=== PATIENT | female | born 2000 | race African-American/Black ===

== ENCOUNTER 2020-02-17 01:38 | Inpatient (IN) | payer MEDICAID ==
[2020-02-17] MEDS ORDERED: Lidocaine 1% 50 ML MDV INJECT ONE (02:27)
[2020-02-17] MEDS ORDERED: Acetaminophen 325 MG Tab PO PRN (02:27)
[2020-02-17] MEDS ORDERED: Sodium Chloride 0.9% 10 ML Syringe FLUSH PRN (02:27)
[2020-02-17] MEDS ORDERED: Ampicillin 2 GM in Sodium Chloride 0.9% 100 ML IV ONE (02:27)
[2020-02-17] MEDS ORDERED: Ondansetron 4 MG/2 ML SDV IVPUSH PRN (02:27)
[2020-02-17] MEDS ORDERED: Calcium Carbonate 500 MG Tab.Chew PO PRN (02:27)
[2020-02-17] MEDS ORDERED: Oxytocin/Lactated Ringers 10 UNIT/1,000 ML BAG IV SCH ×2 (02:30)
[2020-02-17] MEDS: Lactated Ringers 1,000 ML IV SCH ×3 (03:05→23:56)
[2020-02-17] MEDS: Ampicillin 1 GM in Sodium Chloride 0.9% 100 ML IV SCH ×5 (06:55→22:44)
--- NOTE | 2020-02-17 08:50 | PCM.LDHP ---
<Katharina Jenkins - Last Filed: 02/17/20 08:45> L&D History of Present Illness - General Date of Service: 02/17/20 Admit Problem/Dx: Patient Status Order with Admit Dx/Problem 02/17/20 01:48 Patient Status [ADT] Routine 02/17/20 02:28 Patient Status [ADT] Routine Admission Diagnosis/Problem Admission Diagnosis/Problem Active labor Source of Information: Patient History Limitations: Reports: No Limitations - History of Present Illness Introduction:: Keerthi Argueta is a that presented 02/17/2020 in active labor. She states her water broke around 12:30 AM and came in for admission. She is experiencing intermittent pelvic pressure that does not radiate into her vagina. She admits to mild anxiety involving delivery but not other problems. She is overall healthy with no concerns. Timing/Duration: Reports: intermittent Location, : Reports: Pelvic Quality: Reports: Pressure Severity: Mild - Related Data Allergies/Adverse Reactions: Allergies Allergy/AdvReac Type Severity Reaction Status Date / Time No Known Allergies Allergy Verified 02/17/20 01:49 Home Medications: Home Meds No122/Iron/Folic Acid [ Multi Tablet] 1 each PO DAILY 02/17/20 [History] Past Medical History HEENT History: Denies: Allergic Rhinitis, Epistaxis, Hard of Hearing, Impaired Vision, Sinusitis Cardiovascular History: Denies: Heart Murmur Respiratory History: Denies: Asthma Gastrointestinal History: Denies: Jaundice Genitourinary History: Denies: UTI, Recurrent DIRECTOR PEDIATRIC History: Reports: : 1 Para: 0 Psychiatric History: Reports: Addiction, Anxiety, Depression, Suicidal Ideation Other Psychiatric History: Pt reports suicidal thoughts about 1 year ago, denies plan or attempts. Denies suicidal thoughts currently. - Past Surgical History HEENT Surgical History: Reports: Oral Surgery Musculoskeletal Surgical History: Reports: Other (See Below) Other Musculoskeletal Surgeries/Procedures:: left knee surgery Social & Family History - Family History Family Medical History: Noncontributory - Tobacco Use Smoking Status *Q: Former Smoker Used Tobacco, but Quit: Yes Month/Year Tobacco Last Used: 04/2019 - Recreational Drug Use Recreational Drug Use: No H&P Review of Systems - Review of Systems: Review Of Systems: See Below General: Denies: Fever, Chills, Weakness, Night Sweats, Weight Loss HEENT: Denies: Headaches, Hearing Changes, Rhinitis, Sinus Congestion, Sore Throat, Visual Changes Pulmonary: Denies: Shortness of Breath, Cough, Hemoptysis Cardiovascular: Denies: Chest Pain, Palpitations, Lightheadedness Gastrointestinal: Denies: Abdominal Pain, Constipation, Diarrhea, Difficulty Swallowing, Nausea, Vomiting Genitourinary: Denies: Dysuria, Burning, Pain Skin: Reports: Pruritis (abdominal pruritis where US gel was applied.) Psychiatric: Reports: Anxiety Neurological: Denies: Dizziness, Headache, Numbness, Paresthesia, Tingling, Chau mors Hematologic/Lymphatic: Denies: Anemia, Easy Bruising Immunologic: Reports: No Symptoms L&D Exam - Exam Exam: See Below - Vital Signs Vital Signs: Last Vital Signs Temp 98.6 F 02/17/20 01:48 Pulse 113 H 02/17/20 01:48 Resp 16 02/17/20 01:48 BP 134/88 02/17/20 01:48 Pulse Ox 98 02/17/20 01:48 Weight: 70.488 kg - Exam General: Alert, Oriented, Cooperative HEENT: Conjunctiva Clear, Hearing Intact Neck: Supple, Trachea Midline Lungs: Clear to Auscultation, Normal Respiratory Effort Cardiovascular: Regular Rate, Regular Rhythm, Normal S1, Normal S2 GI/Abdominal Exam: Non-Tender, No Organomegaly, No Distention Rectal Exam: Decreased Rectal Tone Extremities: Normal Inspection, Normal Range of Motion Skin: Warm, Dry, Intact Psychiatric: Alert, Normal Affect, Normal Mood - Patient Data Lab Results Last 24 hrs: Laboratory Results - last 24 hr 02/17/20 02/17/20 02/17/20 Range/Units 02:00 02:40 02:40 WBC 9.62 (3.98-10.04) K/mm3 RBC 4.65 (3.98-5.22) M/mm3 Hgb 12.9 (11.2-15.7) gm/dl Hct 39.3 (34.1-44.9) % MCV 84.5 (79.4-94.8) fl MCH 27.7 (25.6-32.2) pg MCHC 32.8 (32.2-35.5) g/dl RDW Std Deviation 41.0 (36.4-46.3) fL Plt Count 255 (182-369) K/mm3 MPV 10.7 (9.4-12.3) fl Neut % (Auto) 70.9 (34.0-71.1) % Lymph % (Auto) 20.4 (19.3-51.7) % [place] % (Auto) 8.0 (4.7-12.5) % Eos % (Auto) 0.3 L (0.7-5.8) Baso % (Auto) 0.2 (0.1-1.2) % Neut # (Auto) 6.82 H (1.56-6.13) K/mm3 Lymph # (Auto) 1.96 (1.18-3.74) K/mm3 [place] # (Auto) 0.77 H (0.24-0.36) K/mm3 Eos # (Auto) 0.03 L (0.04-0.36) K/mm3 Baso # (Auto) 0.02 (0.01-0.08) K/mm3 Membrane Rupture Positive H COVID-19 (ULISES) (NEGATIVE) Blood Type O POSITIVE Gel Antibody Screen Negative 02/17/20 Range/Units 02:52 WBC (3.98-10.04) K/mm3 RBC (3.98-5.22) M/mm3 Hgb (11.2-15.7) gm/dl Hct (34.1-44.9) % MCV (79.4-94.8) fl MCH (25.6-32.2) pg MCHC (32.2-35.5) g/dl RDW Std Deviation (36.4-46.3) fL Plt Count (182-369) K/mm3 MPV (9.4-12.3) fl Neut % (Auto) (34.0-71.1) % Lymph % (Auto) (19.3-51.7) % [place] % (Auto) (4.7-12.5) % Eos % (Auto) (0.7-5.8) Baso % (Auto) (0.1-1.2) % Neut # (Auto) (1.56-6.13) K/mm3 Lymph # (Auto) (1.18-3.74) K/mm3 [place] # (Auto) (0.24-0.36) K/mm3 Eos # (Auto) (0.04-0.36) K/mm3 Baso # (Auto) (0.01-0.08) K/mm3 Membrane Rupture COVID-19 (ULISES) Negative (NEGATIVE) Blood Type Gel Antibody Screen Result Diagrams: 02/17/20 02:40 - Problem List (1) Active labor at term SNOMED Code(s): 08381087 ICD Code: [id number] - Status: Acute Current Visit: Yes Problem List Initiated/Reviewed/Updated: Yes Orders Last 24hrs: Active Orders 24 hr Category Date Time Status Patient Status [ADT] Routine ADT 02/17/20 02:28 Active Activity as Tolerated [RC] PFP Care 02/17/20 02:27 Active Communication Order [RC] ASDIRECTED Care 02/17/20 02:27 Active Notify Provider [RC] PFP Care 02/17/20 02:27 Active Notify Provider [RC] PRN Care 02/17/20 02:27 Active Peripheral IV Care [RC] PRN Care 02/17/20 02:28 Active Pump Management, Intrathecal [RC] ASDIRECTED Care 02/17/20 02:28 Active Urinary Catheter Assessment [RC] ASDIRECTED Care 02/17/20 02:27 Active Consult to Case Management/Director Of Placement [CONS] Cons 02/17/20 07:15 Active Routine Regular Diet [DIET] Diet 02/17/20 Breakfast Active RAPID PLASMA REAGIN,RPR [CHEM] Stat Lab 02/17/20 02:40 Received Acetaminophen [TylenoL] Med 02/17/20 02:27 Active 650 mg PO Q4H PRN Ampicillin 1 gm Med 02/17/20 06:30 Active Sodium Chloride 0.9% [Normal Saline] 100 ml IV Q4H Calcium Carbonate [Tums] Med 02/17/20 02:27 Active 1,000 mg PO Q2H PRN Lactated Ringers [Ringers, Lactated] 1,000 ml Med 02/17/20 02:30 Active IV ASDIRECTED Nalbuphine [Nubain] Med 02/17/20 02:27 Active 10 mg IVPUSH Q2H PRN Ondansetron [Zofran] Med 02/17/20 02:27 Active 4 mg IVPUSH Q4H PRN Oxytocin/Lactated Ringers [Pitocin in LR 10 Units/1,000 Med 02/17/20 02:30 Active ML] 10 unit in 1,000 ml IV .CONTINUOUS Oxytocin/Lactated Ringers [Pitocin in LR 10 Units/1,000 Med 02/17/20 02:30 Active ML] 10 unit in 1,000 ml IV TITRATE Sodium Chloride 0.9% [Saline Flush] Med 02/17/20 02:27 Active 10 ml FLUSH ASDIRECTED PRN Electronic Heart Tones Ext w TOCO [WOMSER] Ot 02/17/20 02:27 Ordered Routine Electronic Heart Tones Internal [WOMSER] Per Unit Ot 02/17/20 02:27 Ordered Routine Peripheral IV Insertion Adult [OM.PC] Routine Ot 02/17/20 02:27 Ordered Resuscitation Status Routine Resus Stat 02/17/20 01:47 Ordered Medication Orders Acetaminophen (Tylenol) 650 mg PO Q4H PRN PRN Reason: Pain (Mild 1-3) and fever Calcium Carbonate/Glycine (Tums) 1,000 mg PO Q2H PRN PRN Reason: Indigestion Lactated Ringer's (Ringers, Lactated) 1,000 mls @ 100 mls/hr IV ASDIRECTED [facility] Last Admin: 02/17/20 03:05 Dose: 40 mls/hr Documented by: KELLY Ampicillin Sodium 1 gm/ Sodium (Chloride) 100 mls @ 200 mls/hr IV Q4H [facility] Last Admin: 02/17/20 06:55 Dose: 200 mls/hr Documented by: OLIVERECHE Oxytocin/Lactated Ringer's (Pitocin In Lr 10 Units/1,000 Ml) 10 unit in 1,000 mls @ 12 mls/hr IV TITRATE AMADEO; Protocol Oxytocin/Lactated Ringer's (Pitocin In Lr 10 Units/1,000 Ml) 10 unit in 1,000 mls @ 500 mls/hr IV .CONTINUOUS AM[facility]O Nalbuphine HCl (Nubain) 10 mg IVPUSH Q2H PRN PRN Reason: Pain Ondansetron HCl (Zofran) 4 mg IVPUSH Q4H PRN PRN Reason: Nausea/Vomiting Sodium Chloride (Saline Flush) 10 ml FLUSH ASDIRECTED PRN PRN Reason: Keep Vein Open <Madhu Tam - Last Filed: 08/22/20 10:04> L&D History of Present Illness - General Admit Problem/Dx: Patient Status Order with Admit Dx/Problem 02/17/20 01:48 Patient Status [ADT] Routine 02/17/20 02:28 Patient Status [ADT] Routine Admission Diagnosis/Problem Admission Diagnosis/Problem Active labor - History of Present Illness Present Illness Comments:: Keerthi Argueta is a 19-year-old at 3 8 weeks 2 days (UMANG 02/29/2020) by an early ultrasound who presents in active labor with spontaneous rupture membranes at home earlier this evening. She had routine care throughout her . She was initially seen by a provider in [place] and transferred care to Dr. Nino at 31 weeks 6 days after she had moved here to [place]. Her was overall uncomplicated and she did not have any significant issues. She received Tdap on 01/24/2020. Her is complicated by: * GBS positive on swab and plan for treatment with antibiotics in labor * History of chlamydia with negative test of cure during this with positive on 09/19/2019 and treated and then negative on 11/02/2019. Repeat positive chlamydia test on 01/03/2020 and negative test of cure on 02/05/2020. * Former smokeless tobacco use but none during the . * Teen and moved to [place] to have additional help with caring for the after delivery * Elevated 1 hour glucose tolerance test of 150 and no 3-hour glucose test performed * ancestry without evaluation for hemoglobinopathies DIRECTOR PEDIATRIC history: G1: Current labs Blood type: O+ Antibody screen: Negative First trimester hematocrit/hemoglobin: 38.0%/12.9 on 11/02/2019 Platelets: 253 on 11/02/2019 Urine culture: Consistent with skin tate contamination Rubella status: Immune Hepatitis B surface antigen: Negative RPR: Negative HIV: Negative Gonorrhea: Negative Chlamydia: Positive on 09/19/2019, negative on 11/02/2019. Repeat positive on 01/03/2020 with negative test of cure on 02/05/2020. Anatomy ultrasound: Normal anatomy, anterior placenta, three-vessel cord, 68th percentile One hour glucose tolerance test: 150 Second trimester hemoglobin: 11.3 on 12/12/2019 GBS status: Positive Past Medical History - Past Surgical History HEENT Surgical History: Reports: Oral Surgery ([place] tooth extraction) Social & Family History - Tobacco Core Measures Tobacco Use/Smoking Within Last 30 Days: No Smokeless Tobacco Use in Last 30 Days: No - Alcohol Use Alcohol Use History: No - Recreational Drug Use Recreational Drug Use: No Drug Use in Last 12 Months: No L&D Exam - Vital Signs Vital Signs: Last Vital Signs Temp 37.0 C 02/17/20 01:48 Pulse 113 H 02/17/20 01:48 Resp 16 02/17/20 01:48 BP 134/88 02/17/20 01:48 Pulse Ox 98 02/17/20 01:48 - OB Specific Presentation: Vertex Estimated Weight: 7-7.5 lbs by leopolds - Sheriff Score Sheriff Score Cervix Position: Posterior Sheriff Score Consistency: Medium Sheriff Score Effacement: >80% (80%) Sheriff Score Dilation: 3-4 cm (3 cm) Sheriff Score Infant's Station: -3 (-4) Sheriff Score Total: 6 - Exam GI/Abdominal Exam: Other (Gravid). No: No Organomegaly (Not checked for organomegaly), Guarding, Rigid, Rebound Rectal Exam: No: Decreased Rectal Tone (Rectal tone not checked on exam.) Genitourinary: Normal external exam, Other (Fore bag noted on cervical exam and artificial rupture membranes performed with [place] with return of moderate amount of clear fluid. Mother and tolerated without difficulty.) - Patient Data Lab Results Last 24 hrs: Laboratory Results - last 24 hr 02/17/20 02/17/20 02/17/20 Range/Units 02:00 02:40 02:40 WBC 9.62 (3.98-10.04) K/mm3 RBC 4.65 (3.98-5.22) M/mm3 Hgb 12.9 (11.2-15.7) gm/dl Hct 39.3 (34.1-44.9) % MCV 84.5 (79.4-94.8) fl MCH 27.7 (25.6-32.2) pg MCHC 32.8 (32.2-35.5) g/dl RDW Std Deviation 41.0 (36.4-46.3) fL Plt Count 255 (182-369) K/mm3 MPV 10.7 (9.4-12.3) fl Neut % (Auto) 70.9 (34.0-71.1) % Lymph % (Auto) 20.4 (19.3-51.7) % [place] % (Auto) 8.0 (4.7-12.5) % Eos % (Auto) 0.3 L (0.7-5.8) Baso % (Auto) 0.2 (0.1-1.2) % Neut # (Auto) 6.82 H (1.56-6.13) K/mm3 Lymph # (Auto) 1.96 (1.18-3.74) K/mm3 [place] # (Auto) 0.77 H (0.24-0.36) K/mm3 Eos # (Auto) 0.03 L (0.04-0.36) K/mm3 Baso # (Auto) 0.02 (0.01-0.08) K/mm3 Membrane Rupture Positive H COVID-19 (ULISES) (NEGATIVE) Blood Type O POSITIVE Gel Antibody Screen Negative 02/17/20 Range/Units 02:52 WBC (3.98-10.04) K/mm3 RBC (3.98-5.22) M/mm3 Hgb (11.2-15.7) gm/dl Hct (34.1-44.9) % MCV (79.4-94.8) fl MCH (25.6-32.2) pg MCHC (32.2-35.5) g/dl RDW Std Deviation (36.4-46.3) fL Plt Count (182-369) K/mm3 MPV (9.4-12.3) fl Neut % (Auto) (34.0-71.1) % Lymph % (Auto) (19.3-51.7) % [place] % (Auto) (4.7-12.5) % Eos % (Auto) (0.7-5.8) Baso % (Auto) (0.1-1.2) % Neut # (Auto) (1.56-6.13) K/mm3 Lymph # (Auto) (1.18-3.74) K/mm3 [place] # (Auto) (0.24-0.36) K/mm3 Eos # (Auto) (0.04-0.36) K/mm3 Baso # (Auto) (0.01-0.08) K/mm3 Membrane Rupture COVID-19 (ULISES) Negative (NEGATIVE) Blood Type Gel Antibody Screen Result Diagrams: 02/17/20 02:40 - Problem List (1) 38 weeks gestation of SNOMED Code(s): 68601307 ICD Code: Z3A.38 - 38 WEEKS GESTATION OF Status: Acute Current Visit: Yes (2) GBS (group B Streptococcus carrier), +RV culture, currently SNOMED Code(s): 8627026127534, 424836073, 1230810507671 ICD Code: O99.820 - STREPTOCOCCUS B CARRIER STATE COMPLICATING Status: Acute Current Visit: Yes (3) Chlamydia infection affecting SNOMED Code(s): 1962099749538 ICD Code: O98.819 - OTH MATERNAL INFEC/PARASTC DISEASES COMP PREG, UNSP TRI; A74.9 - CHLAMYDIAL INFECTION, UNSPECIFIED Status: Acute Current Visit: Yes (4) ancestry requiring population-specific genetic screening SNOMED Code(s): 31364048, 620148151, 343005623 ICD Code: Z13.79 - ENCNTR FOR OTH SCREENING FOR GENETIC AND CHROMSOML ANOMALIES Status: Acute Current Visit: Yes (5) Elevated glucose tolerance test Status: Acute Current Visit: Yes Problem List Initiated/Reviewed/Updated: Yes Orders Last 24hrs: Active Orders 24 hr Category Date Time Status Patient Status [ADT] Routine ADT 02/17/20 02:28 Active Activity as Tolerated [RC] PFP Care 02/17/20 02:27 Active Communication Order [RC] ASDIRECTED Care 02/17/20 02:27 Active Notify Provider [RC] PFP Care 02/17/20 02:27 Active Notify Provider [RC] PRN Care 02/17/20 02:27 Active Peripheral IV Care [RC] PRN Care 02/17/20 02:28 Active Pump Management, Intrathecal [RC] ASDIRECTED Care 02/17/20 02:28 Active Urinary Catheter Assessment [RC] ASDIRECTED Care 02/17/20 02:27 Active Consult to Case Management/Director Of Placement [CONS] Cons 02/17/20 07:15 Active Routine Regular Diet [DIET] Diet 02/17/20 Breakfast Active RAPID PLASMA REAGIN,RPR [CHEM] Stat Lab 02/17/20 02:40 Received Acetaminophen [TylenoL] Med 02/17/20 02:27 Active 650 mg PO Q4H PRN Ampicillin 1 gm Med 02/17/20 06:30 Active Sodium Chloride 0.9% [Normal Saline] 100 ml IV Q4H Calcium Carbonate [Tums] Med 02/17/20 02:27 Active 1,000 mg PO Q2H PRN Lactated Ringers [Ringers, Lactated] 1,000 ml Med 02/17/20 02:30 Active IV ASDIRECTED Nalbuphine [Nubain] Med 02/17/20 02:27 Active 10 mg IVPUSH Q2H PRN Ondansetron [Zofran] Med 02/17/20 02:27 Active 4 mg IVPUSH Q4H PRN Oxytocin/Lactated Ringers [Pitocin in LR 10 Units/1,000 Med 02/17/20 02:30 Active ML] 10 unit in 1,000 ml IV .CONTINUOUS Oxytocin/Lactated Ringers [Pitocin in LR 10 Units/1,000 Med 02/17/20 02:30 Active ML] 10 unit in 1,000 ml IV TITRATE Sodium Chloride 0.9% [Saline Flush] Med 02/17/20 02:27 Active 10 ml FLUSH ASDIRECTED PRN Electronic Heart Tones Ext w TOCO [WOMSER] Oth 02/17/20 02:27 Ordered Routine Electronic Heart Tones Internal [WOMSER] Per Unit Ot 02/17/20 02:27 Ordered Routine Peripheral IV Insertion Adult [OM.PC] Routine Oth 02/17/20 02:27 Ordered Resuscitation Status Routine Resus Stat 02/17/20 01:47 Ordered Medication Orders Acetaminophen (Tylenol) 650 mg PO Q4H PRN PRN Reason: Pain (Mild 1-3) and fever Calcium Carbonate/Glycine (Tums) 1,000 mg PO Q2H PRN PRN Reason: Indigestion Lactated Ringer's (Ringers, Lactated) 1,000 mls @ 100 mls/hr IV ASDIRECTED [facility] Last Admin: 02/17/20 03:05 Dose: 40 mls/hr Documented by: KELLY Ampicillin Sodium 1 gm/ Sodium (Chloride) 100 mls @ 200 mls/hr IV Q4H [facility] Last Admin: 02/17/20 06:55 Dose: 200 mls/hr Documented by: PETECHE Oxytocin/Lactated Ringer's (Pitocin In Lr 10 Units/1,000 Ml) 10 unit in 1,000 m ls @ 12 mls/hr IV TITRATE [facility]; Protocol Oxytocin/Lactated Ringer's (Pitocin In Lr 10 Units/1,000 Ml) 10 unit in 1,000 mls @ 500 mls/hr IV .CONTINUOUS [facility] Nalbuphine HCl (Nubain) 10 mg IVPUSH Q2H PRN PRN Reason: Pain Ondansetron HCl (Zofran) 4 mg IVPUSH Q4H PRN PRN Reason: Nausea/Vomiting Sodium Chloride (Saline Flush) 10 ml FLUSH ASDIRECTED PRN PRN Reason: Keep Vein Open Assessment/Plan Comment:: Keerthi Argueta is a 19-year-old G1, P0 at 38 weeks 2 days (UMAGN 02/29/2020) with spontaneous rupture membranes. She has been given time to contract throughout the night with minimal dilation. Artificial rupture membranes of fore bag performed on labor and delivery with evaluation this morning with minimal change. She was started on Pitocin for augmentation of labor. Refer to observation for spontaneous rupture of membranes Start Pitocin for augmentation of labor with minimal casino change attendant the course of approximately 9 hours with rupture membranes Continuous monitoring Place IV and have Lactated Ringer's at 125 ml/hr May have small amounts of regular diet Activity as tolerated May have epidural as desired Plans to breast-feed after delivery Patient given ampicillin 2 g and continue 1 g every 4 hours after for GBS prophylaxis Anticipate vaginal delivery unless otherwise indicated I have seen and evaluated the patient with the PA student and agree with the note as above with changes noted. Madhu Tam MD 10:04 AM 02/17/2020
[2020-02-17] MEDS: Nalbuphine 10 MG/ML Syringe IVPUSH PRN ×3 (12:52→18:44)
[2020-02-17] MEDS ORDERED: diphenhydrAMINE 50 MG/ML SDV IVPUSH PRN (22:59)
[2020-02-17] MEDS ORDERED: fentaNYL 100 MCG/2 ML SDV EPIDUR PRN (22:59)
[2020-02-17] MEDS ORDERED: ePHEDrine 50 MG/ML SDV IVPUSH PRN (22:59)
[2020-02-17] MEDS ORDERED: Bupivacaine/fentaNYL/NS 100 ML Bag EPIDUR PRN (22:59)
--- NOTE | 2020-02-17 23:57 | PCM.PREANE ---
Preanesthetic Assessment - Procedure Proposed Procedure: Labor Epidural - Anesthesia/Transfusion/Family Hx Anesthesia History: Prior Anesthesia Without Reaction Family History of Anesthesia Reaction: No Transfusion History: No Prior Transfusion(s) - Review of Systems General: No Symptoms Pulmonary: No Symptoms Cardiovascular: No Symptoms Gastrointestinal: No Symptoms Neurological: No Symptoms Other: Reports: Depression, Anxiety - Physical Assessment Vital Signs: Last Vital Signs Temp 37.0 C 02/17/20 01:48 Pulse 113 H 02/17/20 01:48 Resp 16 02/17/20 01:48 BP 134/88 02/17/20 01:48 Pulse Ox 98 02/17/20 01:48 Height: 1.63 m Weight: 70.488 kg ASA Class: 2 Mental Status: Alert & Oriented x3 Airway Class: Mallampati = 2 Dentition: Reports: Normal Dentition Thyro-Mental Finger Breadths: 3 Mouth Opening Finger Breadths: 3 ROM/Head Extension: Full Lungs: Clear to Auscultation, Normal Respiratory Effort Cardiovascular: Regular Rate, Regular Rhythm - Lab Values: Laboratory Last Values WBC 9.62 K/mm3 (3.98-10.04) 02/17/20 02:40 RBC 4.65 M/mm3 (3.98-5.22) 02/17/20 02:40 Hgb 12.9 gm/dl (11.2-15.7) 02/17/20 02:40 Hct 39.3 % (34.1-44.9) 02/17/20 02:40 MCV 84.5 fl (79.4-94.8) 02/17/20 02:40 MCH 27.7 pg (25.6-32.2) 02/17/20 02:40 MCHC 32.8 g/dl (32.2-35.5) 02/17/20 02:40 RDW Std Deviation 41.0 fL (36.4-46.3) 02/17/20 02:40 Plt Count 255 K/mm3 (182-369) 02/17/20 02:40 MPV 10.7 fl (9.4-12.3) 02/17/20 02:40 Neut % (Auto) 70.9 % (34.0-71.1) 02/17/20 02:40 Lymph % (Auto) 20.4 % (19.3-51.7) 02/17/20 02:40 [place] % (Auto) 8.0 % (4.7-12.5) 02/17/20 02:40 Eos % (Auto) 0.3 (0.7-5.8) L 02/17/20 02:40 Baso % (Auto) 0.2 % (0.1-1.2) 02/17/20 02:40 Neut # (Auto) 6.82 K/mm3 (1.56-6.13) H 02/17/20 02:40 Lymph # (Auto) 1.96 K/mm3 (1.18-3.74) 02/17/20 02:40 [place] # (Auto) 0.77 K/mm3 (0.24-0.36) H 02/17/20 02:40 Eos # (Auto) 0.03 K/mm3 (0.04-0.36) L 02/17/20 02:40 Baso # (Auto) 0.02 K/mm3 (0.01-0.08) 02/17/20 02:40 Membrane Rupture Positive H 02/17/20 02:00 COVID-19 (ULISES) Negative (NEGATIVE) 02/17/20 02:52 Blood Type O POSITIVE 02/17/20 02:40 Gel Antibody Screen Negative 02/17/20 02:40 - Allergies Allergies/Adverse Reactions: Allergies Allergy/AdvReac Type Severity Reaction Status Date / Time No Known Allergies Allergy Verified 02/17/20 01:49 - Acknowledgements Anesthesia Type Planned: Epidural Pt an Appropriate Candidate for the Planned Anesthesia: Yes Alternatives and Risks of Anesthesia Discussed w Pt/Guardian: Yes Pt/Guardian Understands and Agrees with Anesthesia Plan: Yes PreAnesthesia Questionnaire HEENT History: Denies: Allergic Rhinitis, Epistaxis, Hard of Hearing, Impaired Vision, Sinusitis Cardiovascular History: Denies: Heart Murmur Respiratory History: Denies: Asthma Gastrointestinal History: Denies: Jaundice Genitourinary History: Denies: UTI, Recurrent BUS INSPECTOR History: Reports: Psychiatric History: Reports: Addiction, Anxiety, Depression, Suicidal Ideation Other Psychiatric History: Pt reports suicidal thoughts about 1 year ago, denies plan or attempts. Denies suicidal thoughts currently. - Past Surgical History HEENT Surgical History: Reports: Oral Surgery ([place] tooth extraction) - SUBSTANCE USE Smoking Status *Q: Former Smoker Tobacco Use Within Last Twelve Months: Vaping Recreational Drug Use History: No - HOME MEDS Home Medications: Home Meds No122/Iron/Folic Acid [ Multi Tablet] 1 each PO DAILY 02/17/20 [History] - CURRENT (IN HOUSE) MEDS Current Meds: Current Medications Acetaminophen (Tylenol) 650 mg PO Q4H PRN PRN Reason: Pain (Mild 1-3) and fever Calcium Carbonate/Glycine (Tums) 1,000 mg PO Q2H PRN PRN Reason: Indigestion Diphenhydramine HCl (Benadryl) 25 mg IVPUSH Q6H PRN PRN Reason: pruritis Ephedrine Sulfate (Ephedrine Sulfate) 5 mg IVPUSH ASDIRECTED PRN PRN Reason: Hypotension Fentanyl (Sublimaze) 100 mcg EPIDUR Q3H PRN PRN Reason: Pain Last Admin: 02/17/20 23:12 Dose: 100 mcg Documented by: Fentanyl/Bupivacaine HCl (Fentanyl/Bupivacaine/Ns 2 Mcg-0.125% 100 Ml) 100 ml EPIDUR ASDIRECTED PRN PRN Reason: Pain Last Admin: 02/17/20 23:12 Dose: 100 ml Documented by: Lactated Ringer's (Ringers, Lactated) 1,000 mls @ 100 mls/hr IV ASDIRECTED [facility] Last Admin: 02/17/20 18:46 Dose: 40 mls/hr Documented by: Ampicillin Sodium 1 gm/ Sodium (Chloride) 100 mls @ 200 mls/hr IV Q4H [facility] Last Admin: 02/17/20 22:44 Dose: 200 mls/hr Documented by: Oxytocin/Lactated Ringer's (Pitocin In Lr 10 Units/1,000 Ml) 10 unit in 1,000 mls @ 12 mls/hr IV TITRATE [facility]; Protocol Last Titration: 02/17/20 23:35 Dose: 12 munits/min, 72 mls/hr Documented by: Oxytocin/Lactated Ringer's (Pitocin In Lr 10 Units/1,000 Ml) 10 unit in 1,000 mls @ 500 mls/hr IV .CONTINUOUS [facility] Nalbuphine HCl (Nubain) 10 mg IVPUSH Q2H PRN PRN Reason: Pain Last Admin: 02/17/20 18:44 Dose: 10 mg Documented by: Ondansetron HCl (Zofran) 4 mg IVPUSH Q4H PRN PRN Reason: Nausea/Vomiting Last Admin: 02/17/20 23:11 Dose: 4 mg Documented by: Sodium Chloride (Saline Flush) 10 ml FLUSH ASDIRECTED PRN PRN Reason: Keep Vein Open Discontinued Medications Ampicillin Sodium 2 gm/ Sodium (Chloride) 100 mls @ 200 mls/hr IV ONETIME ONE Stop: 02/17/20 02:56 Last Admin: 02/17/20 03:05 Dose: 200 mls/hr Documented by: Lidocaine HCl (Xylocaine 1%) 20 ml INJECT ONETIME ONE Stop: 02/17/20 02:28
[2020-02-18] MEDS: Lactated Ringers 1,000 ML IV SCH (01:02)
[2020-02-18] MEDS: Ampicillin 1 GM in Sodium Chloride 0.9% 100 ML IV SCH (02:41)
--- NOTE | 2020-02-18 04:51 | PCM.DEL ---
L & D Note - General Info Date of Service: 02/18/20 Mother's Due Date: 02/29/20 - Delivery Note Labor: Spontaneous, Augmented by Oxytocin Cervical Ripening Method: Oxytocin Delivery Outcome: Livebirth Delivery Method: Spontaneous Vaginal Delivery-Single Presentation: Left Occiput Anterior (MATT) Nuchal Cord: None Prep: Povidone-Iodine (Betadine Anesthesia Type: Epidural Amniotic Fluid Description: Clear Episiotomy Type: None Laceration: 1st Degree (midline perineal and at the posterior hymenal ring) Suture type: Vicryl Suture size: 4-0 Cord: 3 Vessels Estimated Blood Loss: 200 Resuscitation Needed: No : Bulb Syringe, Stimulated, Warmed, Pax Used Provider: Madhu Tam Score 1 min: 9 Score 5 min: 9 Second Stage Interventions: Reports: Pushing, Stirrups/Leg Supports Delivery Comments (Free Text/Narrative):: Stage I: Keerthi Argueta was admitted for spontaneous rupture membranes with clear fluid. On admission her cervix was dilated to 1.5 cm. She was GBS positive and was started on ampicillin for GBS prophylaxis. She received a total of 7 doses prior to delivery. She was making slow progress after initial rupture membranes and was started on Pitocin for augmentation of labor. She was noted to have a fore bag of the amniotic sac and this was artificially ruptured with return of clear fluid. She was continued on Pitocin throughout the day for augmentation of labor. She was given an epidural for anesthesia. She proceeded to complete and pushing. Stage II: On 02/18/2020 she had a normal vaginal delivery of a live male at 04:09. Apgars of 9 & 9. Weight of 3190 g (7 lbs 0.5 oz). Length of 19.0 inches. There was no nuchal cord. was delivered in MATT position. The cord was doubly clamped and cut by patient's sister. Infant was placed on mother's abdomen. Stage III: She had a spontaneous delivery of an intact placenta in Gladys presentation. Three vessel cord. She was given pitocin and fundal massage. She had a first-degree midline perineal laceration and a laceration at the inferior hymenal ring that was bleeding. A [id number] suture with 4-0 Vicryl was placed at the hymenal ring where there was some bleeding and this was made hemostatic. There was also noted to be a small non-enlarging hematoma of the left superior hymenal ring and a small 2 x 2 area of hematoma in the left inferior vaginal wall at approximately the 5 o'clock position. Mom and baby were stable to recovery. EBL of 200 mL. Madhu Tam MD 4:44 AM 02/18/2020 - General Info Date of Service: 02/18/20 - Patient Data Vitals - Most Recent: Last Vital Signs Temp 37.0 C 02/17/20 01:48 Pulse 113 H 02/17/20 01:48 Resp 16 02/17/20 01:48 BP 134/88 02/17/20 01:48 Pulse Ox 98 02/17/20 01:48 Weight - Most Recent: 70.488 kg I&O - Last 24 Hours: Intake & Output 02/17/20 02/17/20 02/18/20 14:59 22:59 06:59 Intake Total 120 1520 2300 Balance 120 1520 2300 Med Orders - Current: Current Medications Acetaminophen (Tylenol) 650 mg PO Q4H PRN PRN Reason: Pain (Mild 1-3) and fever Calcium Carbonate/Glycine (Tums) 1,000 mg PO Q2H PRN PRN Reason: Indigestion Diphenhydramine HCl (Benadryl) 25 mg IVPUSH Q6H PRN PRN Reason: pruritis Ephedrine Sulfate (Ephedrine Sulfate) 5 mg IVPUSH ASDIRECTED PRN PRN Reason: Hypotension Fentanyl (Sublimaze) 100 mcg EPIDUR Q3H PRN PRN Reason: Pain Last Admin: 02/17/20 23:12 Dose: 100 mcg Documented by: Fentanyl/Bupivacaine HCl (Fentanyl/Bupivacaine/Ns 2 Mcg-0.125% 100 Ml) 100 ml EPIDUR ASDIRECTED PRN PRN Reason: Pain Last Admin: 02/17/20 23:12 Dose: 100 ml Documented by: Lactated Ringer's (Ringers, Lactated) 1,000 mls @ 100 mls/hr IV ASDIRECTED AMADEO Last Admin: 02/18/20 01:02 Dose: 40 mls/hr Documented by: Ampicillin Sodium 1 gm/ Sodium (Chloride) 100 mls @ 200 mls/hr IV Q4H [facility] Last Admin: 02/18/20 02:41 Dose: 200 mls/hr Documented by: Oxytocin/Lactated Ringer's (Pitocin In Lr 10 Units/1,000 Ml) 10 unit in 1,000 mls @ 12 mls/hr IV TITRATE AMADEO; Protocol Last Titration: 02/18/20 03:42 Dose: 16 munits/min, 96 mls/hr Documented by: Oxytocin/Lactated Ringer's (Pitocin In Lr 10 Units/1,000 Ml) 10 unit in 1,000 mls @ 500 mls/hr IV .CONTINUOUS AMADEO Last Admin: 02/18/20 04:20 Dose: 500 mls/hr Documented by: Nalbuphine HCl (Nubain) 10 mg IVPUSH Q2H PRN PRN Reason: Pain Last Admin: 02/17/20 18:44 Dose: 10 mg Documented by: Ondansetron HCl (Zofran) 4 mg IVPUSH Q4H PRN PRN Reason: Nausea/Vomiting Last Admin: 02/17/20 23:11 Dose: 4 mg Documented by: Sodium Chloride (Saline Flush) 10 ml FLUSH ASDIRECTED PRN PRN Reason: Keep Vein Open Discontinued Medications Ampicillin Sodium 2 gm/ Sodium (Chloride) 100 mls @ 200 mls/hr IV ONETIME ONE Stop: 02/17/20 02:56 Last Admin: 02/17/20 03:05 Dose: 200 mls/hr Documented by: Lidocaine HCl (Xylocaine 1%) 20 ml INJECT ONETIME ONE Stop: 02/17/20 02:28 - Problem List & Annotations (1) 38 weeks gestation of SNOMED Code(s): 95333581 Code(s): Z3A.38 - 38 WEEKS GESTATION OF Status: Acute Current Visit: Yes (2) GBS (group B Streptococcus carrier), +RV culture, currently SNOMED Code(s): 0149364828661, 803155718, 3222601512090 Code(s): O99.820 - STREPTOCOCCUS B CARRIER STATE COMPLICATING Status: Acute Current Visit: Yes (3) Chlamydia infection affecting SNOMED Code(s): 3407021040099 Code(s): O98.819 - OTH MATERNAL INFEC/PARASTC DISEASES COMP PREG, UNSP TRI; A74.9 - CHLAMYDIAL INFECTION, UNSPECIFIED Status: Acute Current Visit: Yes (4) ancestry requiring population-specific genetic screening SNOMED Code(s): 78000425, 378391080, 643514119 Code(s): Z13.79 - ENCNTR FOR OTH SCREENING FOR GENETIC AND CHROMSOML ANOMA LIES Status: Acute Current Visit: Yes (5) Elevated glucose tolerance test Status: Acute Current Visit: Yes (6) Vaginal delivery SNOMED Code(s): 655663801 Code(s): O80 - ENCOUNTER FOR FULL-TERM UNCOMPLICATED DELIVERY Status: Acute Current Visit: Yes (7) First degree perineal laceration during delivery SNOMED Code(s): 593483612 Code(s): O70.0 - FIRST DEGREE PERINEAL LACERATION DURING DELIVERY Status: Acute Current Visit: Yes - Problem List Review Problem List Initiated/Reviewed/Updated: Yes - My Orders Last 24 Hours: My Active Orders 02/17/20 06:30 Ampicillin 1 gm Sodium Chloride 0.9% [Normal Saline] 100 ml IV Q4H 02/17/20 Breakfast Regular Diet [DIET] 02/17/20 07:15 Consult to Case Management/[employer] [CONS] Routine 02/18/20 04:34 Patient Status Manage Transfer [TRANSFER] Routine - Plan Plan:: Keerthi Argueta is a 19-year-old now -0-0-1 status post normal spontaneous vaginal delivery, PPD #0 complicated by GBS positive status and received 7 total doses of ampicillin prior to delivery, chlamydia infection in , elevated 1 hour glucose test without a 3-hour glucose test and ancestry Admit to inpatient following normal spontaneous vaginal delivery Continue Pitocin per unit protocol following delivery of placenta and lactated Ringer's until tolerating regular diet Regular diet Vitals per unit routine Ibuprofen and Tylenol for pain control Assist with breast-feeding as needed Continue to monitor lochia Monitor vaginal hematoma that was noted during delivery to ensure that it is not enlarging and needing further evaluation Anticipate discharge home on day #2 Madhu Tam MD 4:44 AM 02/18/2020
[2020-02-18] MEDS ORDERED: Acetaminophen 325 MG Tab PO PRN (06:02)
[2020-02-18] MEDS ORDERED: Hydrocortisone Acetate 25 MG Supp RECTAL PRN (06:02)
[2020-02-18] MEDS ORDERED: Docusate Sodium 100 MG Cap PO PRN (06:02)
[2020-02-18] MEDS ORDERED: Oxytocin/Lactated Ringers 10 UNIT/1,000 ML BAG IV SCH (06:02)
[2020-02-18] MEDS ORDERED: Witch Hazel Medicated Pads 40/Jar TOP PRN (06:02)
[2020-02-18] MEDS ORDERED: Benzocaine/Menthol 20%-0.5% Spray 56 GM Canister TOP PRN (06:02)
[2020-02-18] MEDS ORDERED: Magnesium Hydroxide 400 MG/5 ML Susp 30 ML Cup PO PRN (06:02)
[2020-02-18] MEDS: Ibuprofen 600 MG Tab PO PRN (09:18)
[2020-02-18] MEDS: Prenatal Multivitamin with Calcium/Folic Acid/Iron Tab PO SCH (09:18)
--- NOTE | 2020-02-19 07:28 | PCM48HPAN ---
Post Anesthesia Note - EVALUATION WITHIN 48HRS OF ANESTHETIC Vital Signs in Normal Range: Yes Patient Participated in Evaluation: Yes Respiratory Function Stable: Yes Airway Patent: Yes Cardiovascular Function Stable: Yes Hydration Status Stable: Yes Pain Control Satisfactory: Yes Nausea and Vomiting Control Satisfactory: Yes Mental Status Recovered: Yes Vital Signs: Last Vital Signs Temp 36.9 C 02/19/20 03:45 Pulse 101 H 02/19/20 03:45 Resp 14 02/19/20 03:45 BP 100/44 L 02/19/20 03:45 Pulse Ox 98 02/19/20 03:45 - COMMENTS/OBSERVATIONS Free Text/Narrative:: no anesthesia complications noted
--- NOTE | 2020-02-19 09:42 | PCM.SN.2 ---
- Free Text/Narrative Note: Post Progress Note PPD #1 Subjective: Doing well overall. Ambulating without difficulty. Lochia minimal. Voiding without difficulty. Tolerating regular diet without nausea or vomiting. Pain minimal to moderate but not taking any pain medications. She states that she will have a sharp pain if she coughs or sneezes. Denies any significant cramping. Breast-feeding with minimal difficulty but is planning to use of formula supplementation. Objective: Vitals: Vital Signs - 24 hr 02/18/20 02/18/20 02/19/20 17:00 19:38 03:45 Temperature 36.9 C 36.9 C 36.9 C Pulse, 113 H 114 H 101 H Peripheral Respiratory 15 14 14 Rate Blood Pressure 124/72 115/68 100/44 L O2 Sat by Pulse 98 100 98 Oximetry 02/19/20 07:52 Temperature 37.2 C Pulse, 108 H Peripheral Respiratory 14 Rate Blood Pressure 112/75 O2 Sat by Pulse 100 Oximetry Physical Exam General: Alert and oriented, no acute distress Lungs: Clear to auscultation bilaterally Heart: Regular rate and rhythm Abdomen: Soft, minimal appropriate tenderness, non-distended, fundus midline, nontender, and at the umbilicus Extremities: Trace edema in bilateral lower extremities to mid shins Laboratory Tests 02/17/20 02/17/20 02/17/20 Range/Units 02:00 02:40 02:40 WBC 9.62 (3.98-10.04) K/mm3 RBC 4.65 (3.98-5.22) M/mm3 Hgb 12.9 (11.2-15.7) gm/dl Hct 39.3 (34.1-44.9) % MCV 84.5 (79.4-94.8) fl MCH 27.7 (25.6-32.2) pg MCHC 32.8 (32.2-35.5) g/dl RDW Std Deviation 41.0 (36.4-46.3) fL Plt Count 255 (182-369) K/mm3 MPV 10.7 (9.4-12.3) fl Neut % (Auto) 70.9 (34.0-71.1) % Lymph % (Auto) 20.4 (19.3-51.7) % [place] % (Auto) 8.0 (4.7-12.5) % Eos % (Auto) 0.3 L (0.7-5.8) Baso % (Auto) 0.2 (0.1-1.2) % Neut # (Auto) 6.82 H (1.56-6.13) K/mm3 Lymph # (Auto) 1.96 (1.18-3.74) K/mm3 [place] # (Auto) 0.77 H (0.24-0.36) K/mm3 Eos # (Auto) 0.03 L (0.04-0.36) K/mm3 Baso # (Auto) 0.02 (0.01-0.08) K/mm3 Membrane Rupture Positive H RPR Non-reactive (NONREACTIVE) COVID-19 (ULISES) (NEGATIVE) Blood Type Gel Antibody Screen 02/17/20 02/17/20 Range/Units 02:40 02:52 WBC (3.98-10.04) K/mm3 RBC (3.98-5.22) M/mm3 Hgb (11.2-15.7) gm/dl Hct (34.1-44.9) % MCV (79.4-94.8) fl MCH (25.6-32.2) pg MCHC (32.2-35.5) g/dl RDW Std Deviation (36.4-46.3) fL Plt Count (182-369) K/mm3 MPV (9.4-12.3) fl Neut % (Auto) (34.0-71.1) % Lymph % (Auto) (19.3-51.7) % [place] % (Auto) (4.7-12.5) % Eos % (Auto) (0.7-5.8) Baso % (Auto) (0.1-1.2) % Neut # (Auto) (1.56-6.13) K/mm3 Lymph # (Auto) (1.18-3.74) K/mm3 [place] # (Auto) (0.24-0.36) K/mm3 Eos # (Auto) (0.04-0.36) K/mm3 Baso # (Auto) (0.01-0.08) K/mm3 Membrane Rupture RPR (NONREACTIVE) COVID-19 (ULISES) Negative (NEGATIVE) Blood Type O POSITIVE Gel Antibody Screen Negative ASSESSMENT: 19-year-old female -0-0-1 s/p normal vaginal delivery PPD #1, complicated by GBS positive, history of chlamydia, former smokeless tobacco use, teen , elevated 1 hour glucose tolerance test and ancestry PLAN: Doing well Breast-feeding with minimal difficulty. Assist as needed Lochia minimal. Continue to monitor for appropriate lochia. Continue routine care Anticipate discharge home tomorrow Madhu Tam MD 9:41 AM 02/19/2020
[2020-02-19] MEDS: Ibuprofen 600 MG Tab PO PRN (14:22)
--- NOTE | 2020-02-20 09:15 | PCM.SN.2 ---
- Free Text/Narrative Note: Post Progress Note PPD #2 Subjective: Doing well overall. Ambulating without difficulty. Lochia minimal. Voiding without difficulty. Tolerating regular diet without nausea or vomiting. Pain minimal and is improved from previous day. Reports that she took pain medication yesterday and it helped significantly with her pain. Breast-feeding with with formula supplementation with minimal difficulty. Objective: Vitals: Vital Signs - 24 hr 02/19/20 02/19/20 02/20/20 15:51 19:30 02:58 Temperature 37.3 C 37.0 C Pulse, 98 99 98 Peripheral Respiratory 14 16 Rate Blood Pressure 120/67 124/71 122/64 O2 Sat by Pulse 100 99 99 Oximetry 02/20/20 07:29 Temperature 36.6 C Pulse, 97 Peripheral Respiratory 14 Rate Blood Pressure 119/70 O2 Sat by Pulse 100 Oximetry Physical Exam General: Alert and oriented, no acute distress Lungs: Clear to auscultation bilaterally Heart: Regular rate and rhythm Abdomen: Soft, minimal appropriate tenderness, non-distended, fundus midline, nontender, and 1 fingerbreadth below the umbilicus Extremities: No edema in bilateral lower extremities ASSESSMENT: 19-year-old female -0-0-1 s/p normal vaginal delivery PPD #2, complicated by GBS positive, history of chlamydia, former smokeless tobacco use, teen , elevated 1 hour glucose tolerance test and ancestry PLAN: Doing well Breast-feeding with formula supplementation with minimal difficulty. Assist as needed Lochia minimal. Continue to monitor for appropriate lochia. Continue routine care EPDS 04/26 prior to discharge. No thoughts of harm to self or others. No thoughts of harm to self or others. Offered antidepressant medications and she desired to be started on medication. Sent a prescription for Zoloft 50 mg daily to her pharmacy for antidepressant treatment. Discharge home today Madhu Tam MD 12:46 PM 02/20/2020
--- NOTE | 2020-02-20 12:50 | PCM.DCSUM1 ---
Discharge Summary - Hospital Course Free Text/Narrative:: - General Info Date of Service: 02/18/20 Mother's Due Date: 02/29/20 - Delivery Note Labor: Spontaneous, Augmented by Oxytocin Cervical Ripening Method: Oxytocin Delivery Outcome: Livebirth Infant Delivery Method: Spontaneous Vaginal Delivery-Single Presentation: Left Occiput Anterior (MATT) Nuchal Cord: None Prep: Povidone-Iodine (Betadine Anesthesia Type: Epidural Amniotic Fluid Description: Clear Episiotomy Type: None Laceration: 1st Degree (midline perineal and at the posterior hymenal ring) Suture type: Vicryl Suture size: 4-0 Cord: 3 Vessels Estimated Blood Loss: 200 Resuscitation Needed: No Magdalena: Bulb Syringe, Stimulated, Warmed, Majestic Used Provider: Madhu Tam Score 1 min: 9 Score 5 min: 9 Second Stage Interventions: Reports: Pushing, Stirrups/Leg Supports Delivery Comments (Free Text/Narrative):: Stage I: Keerthi Argueta was admitted for spontaneous rupture membranes with clear fluid. On admission her cervix was dilated to 1.5 cm. She was GBS positive and was started on ampicillin for GBS prophylaxis. She received a total of 7 doses prior to delivery. She was making slow progress after initial rupture membranes and was started on Pitocin for augmentation of labor. She was noted to have a fore bag of the amniotic sac and this was artificially ruptured with return of clear fluid. She was continued on Pitocin throughout the day for augmentation of labor. She was given an epidural for anesthesia. She proceeded to complete and pushing. Stage II: On 02/18/2020 she had a normal vaginal delivery of a live male infant at 04:09. Apgars of 9 & 9. Weight of 3190 g (7 lbs 0.5 oz). Length of 19.0 inches. There was no nuchal cord. was delivered in MATT position. The cord was doubly clamped and cut by patient's sister. Infant was placed on mother's abdomen. Stage III: She had a spontaneous delivery of an intact placenta in Gladys presentation. Three vessel cord. She was given pitocin and fundal massage. She had a first-degree midline perineal laceration and a laceration at the inferior hymenal ring that was bleeding. A lgeyam-xo-ucqrj suture with 4-0 Vicryl was placed at the hymenal ring where there was some bleeding and this was made hemostatic. There was also noted to be a small non-enlarging hematoma of the left superior hymenal ring and a small 2 x 2 area of hematoma in the left inferior vaginal wall at approximately the 5 o'clock position. Mom and baby were stable to recovery. EBL of 200 mL. HPI Initial Comments: - General Info Date of Service: 02/18/20 Mother's Due Date: 02/29/20 - Delivery Note Labor: Spontaneous, Augmented by Oxytocin Cervical Ripening Method: Oxytocin Delivery Outcome: Livebirth Infant Delivery Method: Spontaneous Vaginal Delivery-Single Presentation: Left Occiput Anterior (MATT) Nuchal Cord: None Prep: Povidone-Iodine (Betadine Anesthesia Type: Epidural Amniotic Fluid Description: Clear Episiotomy Type: None Laceration: 1st Degree (midline perineal and at the posterior hymenal ring) Suture type: Vicryl Suture size: 4-0 Cord: 3 Vessels Estimated Blood Loss: 200 Resuscitation Needed: No : Bulb Syringe, Stimulated, Warmed, Majestic Used Provider: Madhu Tam Score 1 min: 9 Score 5 min: 9 Second Stage Interventions: Reports: Pushing, Stirrups/Leg Supports Delivery Comments (Free Text/Narrative):: Stage I: Keerthi Argueta was admitted for spontaneous rupture membranes with clear fluid. On admission her cervix was dilated to 1.5 cm. She was GBS positive and was started on ampicillin for GBS prophylaxis. She received a total of 7 doses prior to delivery. She was making slow progress after initial rupture membranes and was started on Pitocin for augmentation of labor. She was noted to have a fore bag of the amniotic sac and this was artificially ruptured with return of clear fluid. She was continued on Pitocin throughout the day for augmentation of labor. She was given an epidural for anesthesia. She proceeded to complete and pushing. Stage II: On 02/18/2020 she had a normal vaginal delivery of a live male at 04:09. Apgars of 9 & 9. Weight of 3190 g (7 lbs 0.5 oz). Length of 19.0 inches. There was no nuchal cord. Infant was delivered in MATT position. The cord was doubly clamped and cut by patient's sister. Infant was placed on mother's abdomen. Stage III: She had a spontaneous delivery of an intact placenta in Gladys presentation. Three vessel cord. She was given pitocin and fundal massage. She had a first-degree midline perineal laceration and a laceration at the inferior hymenal ring that was bleeding. A tytkyl-bg-mkryk suture with 4-0 Vicryl was placed at the hymenal ring where there was some bleeding and this was made hemostatic. There was also noted to be a small non-enlarging hematoma of the left superior hymenal ring and a small 2 x 2 area of hematoma in the left inferior vaginal wall at approximately the 5 o'clock position. Mom and baby were stable to recovery. EBL of 200 mL. Brief History: - General Info. Date of Service: 02/18/20. Mother's Due Date: 02/29/20. - Delivery Note. Labor: Spontaneous, Augmented by Oxytocin. Cervical Ripening Method: Oxytocin. Delivery Outcome: Livebirth. Infant Delivery Method: Spontaneous Vaginal Delivery-Single. Presentation: Left Occiput Anterior (MATT). Nuchal Cord: None. Prep: Povidone-Iodine (Betadine. Anesthesia Type: Epidural. Amniotic Fluid Description: Clear. Episiotomy Type: None. Laceration: 1st Degree (midline perineal and at the posterior hymenal ring). Suture type: Vicryl. Suture size: 4-0. Cord: 3 Vessels. Estimated Blood Loss: 200. Resuscitation Needed: No. Magdalena: Bulb Syringe, Stimulated, Warmed, Majestic Used. Provider: Madhu Tam. Score 1 min: 9. Score 5 min: 9. Second Stage Interventions: Reports: Pushing, Stirrups/Leg Supports. Delivery Comments (Free Text/Narrative):: Stage I: Keerthi Argueta was admitted for spontaneous rupture membranes with clear fluid. On admission her cervix was dilated to 1.5 cm. She was GBS positive and was started on ampicillin for GBS prophylaxis. She received a total of 7 doses prior to delivery. She was making slow progress after initial rupture membranes and was started on Pitocin for augmentation of labor. She was noted to have a fore bag of the amniotic sac and this was artificially ruptured with return of clear fluid. She was continued on Pitocin throughout the day for augmentation of labor. She was given an epidural for anesthesia. She proceeded to complete and pushing. Stage II: On 02/18/2020 she had a normal vaginal delivery of a live male infant at 04:09. Apgars of 9 & 9. Weight of 3190 g (7 lbs 0.5 oz). Length of 19.0 inches. There was no nuchal cord. Infant was delivered in MATT position. The cord was doubly clamped and cut by patient's sister. was placed on mother's abdomen. Stage III: She had a spontaneous delivery of an intact placenta in Gladys presentation. Three vessel cord. She was given pitocin and fundal massage. She had a first-degree midline perineal laceration and a laceration at the inferior hymenal ring that was bleeding. A mvwksr-ob-upnuo suture with 4-0 Vicryl was placed at the hymenal ring where there was some bleeding and this was made hemostatic. There was also noted to be a small non- enlarging hematoma of the left superior hymenal ring and a small 2 x 2 area of hematoma in the left inferior vaginal wall at approximately the 5 o'clock position. Mom and baby were stable to recovery. EBL of 200 mL. Diagnosis: Stroke: No - Discharge Data Discharge Date: 02/20/20 Discharge Disposition: Home, Self-Care 01 Condition: Good - Referral to Home Health Primary Care Physician: Brooke Nino MD - Discharge Diagnosis/Problem(s) (1) 38 weeks gestation of SNOMED Code(s): 28566370 ICD Code: Z3A.38 - 38 WEEKS GESTATION OF Status: Acute (2) GBS (group B Streptococcus carrier), +RV culture, currently SNOMED Code(s): 6400035219342, 324058831, 6694627802368 ICD Code: O99.820 - STREPTOCOCCUS B CARRIER STATE COMPLICATING Status: Acute (3) Chlamydia infection affecting SNOMED Code(s): 7412674694038 ICD Code: O98.819 - OTH MATERNAL INFEC/PARASTC DISEASES COMP PREG, UNSP TRI; A74.9 - CHLAMYDIAL INFECTION, UNSPECIFIED Status: Acute (4) ancestry requiring population-specific genetic screening SNOMED Code(s): 48655303, 106440781, 200983081 ICD Code: Z13.79 - ENCNTR FOR OTH SCREENING FOR GENETIC AND CHROMSOML ANOMALIES Status: Acute (5) Elevated glucose tolerance test Status: Acute (6) Vaginal delivery SNOMED Code(s): 628235223 ICD Code: O80 - ENCOUNTER FOR FULL-TERM UNCOMPLICATED DELIVERY Status: Acute (7) First degree perineal laceration during delivery SNOMED Code(s): 632315711 ICD Code: O70.0 - FIRST DEGREE PERINEAL LACERATION DURING DELIVERY Status: Acute - Patient Summary/Data Complications: None Consults: Consultations 02/17/20 07:15 Consult to Case Management/Quality Improvement Manager [CONS] Routine Hospital Course: Keerthi Argueta was admitted for for membranes with clear fluid. On admission her cervix was dilated to 1.5 cm. She was GBS positive and started on ampicillin for GBS prophylaxis. She received a total of 7 doses prior to delivery. She was given pitocin for augmentation. She had official rupture of membranes of a fore bag that was noted with clear fluid. She was given an epidural for anesthesia. She progressed to complete and began pushing. On 02/18/2020 she had a normal vaginal delivery of a live male infant at 04:09. Apgars of 9 and 9. Weight of 3190 g (7 pounds 0.5 ounces). Her course was uneventful. Her pain was well controlled and she had minimal lochia. She was ambulating, tolerating a regular diet and voiding normally. She was breast-feeding with formula supplementation with minimal difficulty. She was afebrile and her hematocrit was 39.3 on admission.in the morning of day #2 she was noted to have an elevated EPDS of 10/30. She was offered antidepressant medication desire to be started on medication. A prescription for Zoloft 50 mg daily was sent to her pharmacy. She desired to be discharged home on the morning of PPD #2. Her blood type is O+. - Patient Instructions Diet: Regular Diet as Tolerated Activity: Apply Ice, As Tolerated Activity, Other: Nothing in the vagina for 6 weeks Driving: May Drive Today Showering/Bathing: May Shower Notify Provider of: Fever, Increased Pain, Swelling and Redness, Drainage, Nausea and/or Vomiting Other/Special Instructions: Please contact your physician's office if you have heavy vaginal bleeding enough to soak a pad in less than an hour for several hours. Monitor for any signs of an infection in the breasts with severe pain or redness of the breast. - Discharge Plan *PRESCRIPTION DRUG MONITORING PROGRAM REVIEWED*: Not Applicable *COPY OF PRESCRIPTION DRUG MONITORING REPORT IN PATIENT STEVE: Not Applicable Prescriptions/Med Rec: Sertraline [Zoloft] 50 mg PO DAILY #30 tab Home Medications: Home Meds No122/Iron/Folic Acid [ Multi Tablet] 1 each PO DAILY 02/17/20 [History] Acetaminophen [Tylenol] 650 mg PO Q6H PRN tablet 02/20/20 [Rx] Benzocaine/Menthol [Dermoplast Pain Relief [place]] 1 spray TOP ASDIRECTED PRN canister 02/20/20 [Rx] Docusate Sodium [Colace] 100 mg PO BID PRN cap 02/20/20 [Rx] Hydrocortisone Acetate [Anucort-HC] 25 mg RECTAL BID PRN supp 02/20/20 [Rx] Ibuprofen [Motrin] 600 mg PO Q6H PRN tablet 02/20/20 [Rx] Sertraline [Zoloft] 50 mg PO DAILY #30 tab 02/20/20 [Rx] kathe Mullen [Tucks] 1 pad TOP ASDIRECTED PRN pad 02/20/20 [Rx] Patient Handouts: Breast Pumping Tips, and Self-Care, Care After Vaginal Delivery Referrals: Brooke Nino MD [Primary Care Provider] - (Follow-up in 3 weeks for routine visit or earlier as needed.) - Discharge Summary/Plan Comment DC Time >30 min.: No - Patient Data Vitals - Most Recent: Last Vital Signs Temp 36.6 C 02/20/20 07:29 Pulse 97 02/20/20 07:29 Resp 14 02/20/20 07:29 BP 119/70 02/20/20 07:29 Pulse Ox 100 02/20/20 07:29 Weight - Most Recent: 70.488 kg I&O - Last 24 hours: Intake & Output 02/19/20 02/20/20 02/20/20 22:59 06:59 14:59 Intake Total 120 120 Balance 120 120 Med Orders - Current: Current Medications Discontinued Medications Acetaminophen (Tylenol) 650 mg PO Q4H PRN PRN Reason: Pain (Mild 1-3) and fever Acetaminophen (Tylenol) 650 mg PO Q6H PRN PRN Reason: mild pain or fever Benzocaine/Menthol (Dermoplast Pain Relief [place]) 0 gm TOP ASDIRECTED PRN PRN Reason: Perineal Comfort Measure Last Admin: 02/18/20 06:23 Dose: 1 can Documented by: Calcium Carbonate/Glycine (Tums) 1,000 mg PO Q2H PRN PRN Reason: Indigestion Diphenhydramine HCl (Benadryl) 25 mg IVPUSH Q6H PRN PRN Reason: pruritis Docusate Sodium (Colace) 100 mg PO BID PRN PRN Reason: Constipation Ephedrine Sulfate (Ephedrine Sulfate) 5 mg IVPUSH ASDIRECTED PRN PRN Reason: Hypotension Fentanyl (Sublimaze) 100 mcg EPIDUR Q3H PRN PRN Reason: Pain Last Admin: 02/17/20 23:12 Dose: 100 mcg Documented by: Fentanyl/Bupivacaine HCl (Fentanyl/Bupivacaine/Ns 2 Mcg-0.125% 100 Ml) 100 ml EPIDUR ASDIRECTED PRN PRN Reason: Pain Last Admin: 02/17/20 23:12 Dose: 100 ml Documented by: Hydrocortisone Acetate (Anucort-Hc) 25 mg RECTAL BID PRN PRN Reason: Hemorrhoid pain Lactated Ringer's (Ringers, Lactated) 1,000 mls @ 100 mls/hr IV ASDIRECTED AMADEO Last Admin: 02/18/20 01:02 Dose: 40 mls/hr Documented by: Ampicillin Sodium 2 gm/ Sodium (Chloride) 100 mls @ 200 mls/hr IV ONETIME ONE Stop: 02/17/20 02:56 Last Admin: 02/17/20 03:05 Dose: 200 mls/hr Documented by: Ampicillin Sodium 1 gm/ Sodium (Chloride) 100 mls @ 200 mls/hr IV Q4H [facility] Last Admin: 02/18/20 02:41 Dose: 200 mls/hr Documented by: Oxytocin/Lactated Ringer's (Pitocin In Lr 10 Units/1,000 Ml) 10 unit in 1,000 mls @ 12 mls/hr IV TITRATE [facility]; Protocol Last Titration: 02/18/20 04:09 Dose: 166.5 munits/min, 999 mls/hr Documented by: Oxytocin/Lactated Ringer's (Pitocin In Lr 10 Units/1,000 Ml) 10 unit in 1,000 mls @ 500 mls/hr IV .CONTINUOUS AMADEO Last Admin: 02/18/20 04:20 Dose: 500 mls/hr Documented by: Oxytocin/Lactated Ringer's (Pitocin In Lr 10 Units/1,000 Ml) 10 unit in 1,000 mls @ 100 mls/hr IV TITRATE AMADEO; Protocol Ibuprofen (Motrin) 600 mg PO Q6H PRN PRN Reason: Mild pain or fever Last Admin: 02/19/20 14:22 Dose: 600 mg Documented by: Lidocaine HCl (Xylocaine 1%) 20 ml INJECT ONETIME ONE Stop: 02/17/20 02:28 Last Admin: 02/18/20 19:04 Dose: Not Given Documented by: Magnesium Hydroxide (Milk Of Magnesia) 30 ml PO BEDTIME PRN PRN Reason: Constipation Nalbuphine HCl (Nubain) 10 mg IVPUSH Q2H PRN PRN Reason: Pain Last Admin: 02/17/20 18:44 Dose: 10 mg Documented by: Ondansetron HCl (Zofran) 4 mg IVPUSH Q4H PRN PRN Reason: Nausea/Vomiting Last Admin: 02/17/20 23:11 Dose: 4 mg Documented by: Gricelda Multivit/[place]/Iron/Folic Ac ( Plus Iron) 1 each PO DAILY AMADEO Last Admin: 02/18/20 09:18 Dose: 1 each Documented by: Sodium Chloride (Saline Flush) 10 ml FLUSH ASDIRECTED PRN PRN Reason: Keep Vein Open Kathe Mullen (Froy) 1 pad TOP ASDIRECTED PRN PRN Reason: Perineal Comfort Measure Last Admin: 02/18/20 06:22 Dose: 1 container Documented by:
[2020-02-20] MEDS: Prenatal Multivitamin with Calcium/Folic Acid/Iron Tab PO SCH (12:56)
== END 2020-02-20 11:35 | disposition home or self-care (01) | DRG 807 ==
LOC: JD.OBCHECK 01:38 → JD.OB 01:44 → JD.OBCHECK 02:33 → OBSVTOIN 02-18 04:09 → JD.OB 02-18 04:10
PROVIDERS: ADMIT Obstetrics & Gynecology; ATTEND Obstetrics & Gynecology
PROC: 10E0XZZ Delivery of Products of Conception, External Approach (ICD-10-PCS; principal; 2020-02-18)
PROC: 0HQ9XZZ Repair Perineum Skin, External Approach (ICD-10-PCS; 2020-02-18)
PROC: 10907ZC Drainage of Amniotic Fluid, Therapeutic from Products of Conception, Via Natural or Artificial Opening (ICD-10-PCS; 2020-02-18)
PROC: 3E0P7VZ Introduction of Hormone into Female Reproductive, Via Natural or Artificial Opening (ICD-10-PCS; 2020-02-18)
PROC: 3E0R3BZ Introduction of Anesthetic Agent into Spinal Canal, Percutaneous Approach (ICD-10-PCS; 2020-02-18)
PROC: 00HU33Z Insertion of Infusion Device into Spinal Canal, Percutaneous Approach (ICD-10-PCS; 2020-02-18)
DX: O99.824 Streptococcus B carrier state complicating childbirth (principal); Z37.0 Single live birth; O70.0 First degree perineal laceration during delivery; Z3A.38 38 weeks gestation of pregnancy; Z20.828 Contact with and (suspected) exposure to other viral communicable diseases; O98.819 Other maternal infectious and parasitic diseases complicating pregnancy, unspecified trimester; Z87.891 Personal history of nicotine dependence
CPT/HCPCS: 01967; 36415; 51702; 59025; 59409; 84112; 85025; 86592; 86850; 86900; 86901; A9270-GY; J0290; J2300; J2405; J2590; J3010; J7050; J7120; U0002